=== PATIENT | male | born 1995 | race Caucasian/White ===

== ENCOUNTER 2020-03-29 13:51 | Emergency (ER) | payer OTHER ==
[~2020-03-29] VITALS: Ht 188 cm; Wt 76.7 kg
--- NOTE | 2020-03-29 16:03 | NUR ---
[employer]: PT TO ROOM FROM [facility]AN[facility] OLSON
--- NOTE | 2020-03-29 16:23 | NUR ---
ERMD IN TO EVAL AT THIS TIME
== END 2020-03-29 17:32 | disposition home or self-care (01) ==
LOC: ED 17:19
DX: S60.221A Contusion of right hand, initial encounter (principal); X58.XXXA Exposure to other specified factors, initial encounter; Y93.89 Activity, other specified; Y92.098 Other place in other non-institutional residence as the place of occurrence of the external cause; Y99.8 Other external cause status
CPT/HCPCS: 29125; 99283

== ENCOUNTER 2020-05-02 18:24 | Emergency (ER) | payer OTHER ==
[~2020-05-02] VITALS: Ht 188 cm; Wt 74.0 kg
[2020-05-02 18:28] VITALS: BP 126/80
[2020-05-02] MEDS ORDERED: SODIUM CHLORIDE FLUSH 10ML SYR IVF ONE (19:00)
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
[2020-05-02] MEDS ORDERED: NEOSPORIN OINT. PKT 1 PACKET ONE (19:04)
--- NOTE | 2020-05-02 19:20 | NUR ---
[facility] HERE TO TRANSFER TO [place].
== END 2020-05-02 19:25 | disposition short-term general hospital (02) ==
LOC: ED 18:58
DX: S31.111A Laceration without foreign body of abdominal wall, left upper quadrant without penetration into peritoneal cavity, initial encounter (principal); R51 Headache; X99.1XXA Assault by knife, initial encounter; Y93.89 Activity, other specified; Y92.830 Public park as the place of occurrence of the external cause; Y99.8 Other external cause status
CPT/HCPCS: 99285

== ENCOUNTER 2020-06-13 03:04 | Emergency (ER) | payer OTHER ==
[~2020-06-13] VITALS: Ht 188 cm; Wt 72.0 kg
[2020-06-13] MEDS ORDERED: IBUPROFEN 800 MG TABLET PO STA (03:35)
[2020-06-13] MEDS ORDERED: IBUPROFEN 800 MG TABLET ONE (03:40)
[2020-06-13] MEDS ORDERED: CEPHALEXIN 500 MG CAPSULE ONE (03:40)
[2020-06-13] MEDS ORDERED: SULFAMETH./TRIMETHOPRIM DS 800MG/160MG TABLET ONE (03:41)
[2020-06-13] MEDS ORDERED: SULFAMETH./TRIMETHOPRIM DS 800MG/160MG TABLET PO ONE (04:00)
[2020-06-13] MEDS ORDERED: CEPHALEXIN 500 MG CAPSULE PO ONE (04:00)
[2020-06-13 04:03] VITALS: BP 132/92
== END 2020-06-13 04:08 | disposition home or self-care (01) ==
LOC: ED 03:59
DX: L03.116 Cellulitis of left lower limb (principal); L03.115 Cellulitis of right lower limb; F17.210 Nicotine dependence, cigarettes, uncomplicated
CPT/HCPCS: 99284; 99406